=== PATIENT | female | born 1995 | race Caucasian/White ===

== ENCOUNTER 2023-06-28 10:12 | Emergency (ER) | payer BC, OTHER, SELFPAY ==
[2023-06-28 10:43] VITALS: BP 118/92; PULSE 87; TEMP 36.3; O2SAT 100
[2023-06-28 11:58] LABS: Basophils Percent Auto 0.3 % (0.2-1.2); Hematocrit 36.4 % (37.0-47.0); Hemoglobin 12.7 g/dL (12.0-15.0); Immature Granulocyte Absolute 0.06 K/mm3 (0.00-0.031); Immature Granulocyte Percent A 0.5 % (0-0.5); Lymphocytes Absolute Auto 2.38 K/mm3 (0.9-3.2); Lymphocytes Percent Auto 18.3 % (18.3-44.2); Mean Corpuscular HGB Conc 34.9 g/dl (32-36); Mean Corpuscular Hemoglobin 31.4 pg (26-34); Mean Corpuscular Volume 90.1 fl (80-100); Mean Platelet Volume 9.1 fl (7.4-10.4); Monocytes Absolute Auto 0.6 K/mm3 (0.1-0.6); Monocytes Percent Auto 4.9 % (2.6-8.5); Neutrophils Absolute Auto 9.9 K/mm3 (1.3-6.7); Platelet Count Result 310 k/mm3 (150-375); Red Blood Count 4.04 M/mm3 (4.2-5.4); Red Cell Distribution Width 11.6 % (11.5-14.5)
[2023-06-28 12:07] LABS: Alanine Aminotransferase 18 U/L (6-35); Alkaline Phosphatase 41 U/L (38-126); Anion Gap 4 mmol/L (8-16); Aspartate Amino Transferase 19 U/L (14-36); Bilirubin,Total 0.9 mg/dL (0.2-1.3); Blood Urea Nitrogen 8 mg/dL (7-17); Calcium 9.5 mg/dL (8.4-10.2); Carbon Dioxide 26 mmol/L (22-30); Chloride 102 mmol/L (98-107); Estimated CRCL calculation 110 ml/min; Estimated Glomerular Filt Rate > 60; Glucose 82 mg/dL (65-110); Lipase 51 U/L (23-300); Magnesium 1.9 mg/dL (1.6-2.3); Potassium 3.7 mmol/L (3.4-5.0); Sodium 132 mmol/L (137-145)
[2023-06-28 12:08] LABS: Appearance Urine Turbid (Clear); Bacteria Urine 3+ /hpf; Bilirubin Urine Negative (Negative); Blood Urine Negative (Negative); Color Urine Dark Yellow (Yellow); Glucose Urine UA Negative (Negative); Ketones Urine 3+ mg/dL (Negative); Leukocyte Esterase Ur 1+ LEU/UL (Negative); Mucus Urine Present /lpf; Nitrate Urine Negative (Negative); Non Pathogenic Casts 0-2; Protein Urine Trace mg/dL (Negative); Specific Grav Ur 1.027 (1.001-1.035); Squamous Epithelial Cell Urine Few /hpf (Few); pH Urine 6.5 (5.0-9.0)
[2023-06-28 12:09] LABS: Add Urine Microscopic? YES; Amorphous Sediment Urine Few
--- NOTE | 2023-06-28 12:13 | ED.NAVMDI ---
HPI - Nausea/Vomiting/Diarrhea General Chief complaint: Nausea/Vomiting/Diarrhea Stated complaint: 10WKS PREG. SENT IN FOR HYDRATION Time Seen by Provider: 06/28/23 11:31 Source: patient Mode of arrival: ambulatory Limitations: no limitations History of Present Illness HPI Narrative: Patient is a 27-year-old female who presents ED with report of nausea and vomiting. Patient is and currently approximately 10 weeks gestation. She has had confirmed IUP. She reports having persistent nausea and vomiting throughout does far and states she has been unable to keep down any food or drink over the last [address] Mcfarland with OBGYN and was referred to the ED for further evaluation. reports intermittent abdominal cramping after vomiting, denies consistent pain. Denies diarrhea, constipation, vomiting, dysuria, hematuria. Denies vaginal bleeding. She does admit to having similar issues with vomiting during previous . She was prescribed Zofran and Reglan by a OBGYN, but denies improvement. Reports akathisia reaction to Reglan. Related Data Home Medications Medication Instructions Recorded Confirmed bupropion HCl 300 mg 24 hr tablet, mg PO 02/26/19 extended release fluoxetine 20 mg capsule mg 02/26/19 Allergies Allergy/AdvReac Type Severity Reaction Status Date / Time Penicillins Allergy Unknown Rash Verified 03/06/18 18:38 metoclopramide [From Reglan] AdvReac Difficulty Verified 06/28/23 12:08 Breathing Review of Systems Review of Systems: CONSTITUTIONAL: Denies fever, chills, or sweats. GASTROINTESTINAL: see HPI. GENITOURINARY: Denies vaginal bleeding.Denies dysuria or hematuria. All systems reviewed & are unremarkable except as noted in HPI and below PMFSH Past Medical History Medical History Anxiety Family History Family History Other Family history of arthritis Family history of mental disorder Hypertension Social History Social History Alcohol intake: never Exam Narrative: GENERAL: Well appearing, well-nourished, non-toxic, in no acute distress. HEAD: Normocephalic, atraumatic. RESPIRATORY: Airway patent, respirations nonlabored. Clear to auscultation bilaterally, no rales, rhonchi, wheezing. CARDIOVASCULAR: Regular rate and rhythm without murmurs, rubs, or gallops. ABDOMINAL: Soft, No tenderness throughout abdomen, nondistended. Normoactive BS. MUSCULOSKELETAL: Moves all extremities. No gross deformities. SKIN: Warm, dry, normal color. NEURO: A&O X3. Speech clear. Cranial nerves II-XII grossly intact. Steady gait. No ataxic movements. PSYCHIATRIC: Appropriate mood and affect. Normal interaction. Course Vital Signs Vital signs: Vital Signs Temperature 97.4 F L 06/28/23 10:43 Pulse Rate 87 06/28/23 10:43 Blood Pressure 118/92 H 06/28/23 10:43 Pulse Oximetry 100 06/28/23 10:43 Temperature 98 F 06/28/23 16:43 Pulse Rate 80 06/28/23 16:43 Respiratory Rate 18 06/28/23 16:43 Blood Pressure 100/60 06/28/23 16:43 Pulse Oximetry 100 06/28/23 16:43 MDM - Nausea/Vomiting/Diarrhea MDM Narrative Medical decision making narrative: Patient presented to ED with persistent nausea & vomiting, unable to keep down food or drink, currently 10 weeks gestation, confirmed IUP, denying abdominal pain or vaginal bleeding. VSS upon arrival. Fluids and nausea medicine ordered. Patient has had adverse reaction to Reglan. Laboratory studies with leukocytosis of 13, stable H&H, stable electrolytes and kidney function. Urinalysis with 3+ ketones, 11-20 WBC, 3+ urine bacteria. Sent for culture. Will treat given status. Given dose of rocephin in the ED. Will d/c on keflex. On re-evaluation, patient feeling better, nausea improved. A
[2023-06-28] MEDS: diphenhydrAMINE HCl INJ 50 MG/ML VIAL 25 MG IV PUSH (12:24)
[2023-06-28] MEDS: SODIUM CHLORIDE 0.9% IV 1,000 ML 999 ML IV CONT ×2 (12:24)
[2023-06-28] MEDS: ONDANSETRON INJ 4 MG/2 ML VIAL IV PUSH ×2 (12:25→14:43)
[2023-06-28] MEDS: FAMOTIDINE 20 MG/2 ML VIAL IV PUSH (12:25)
[2023-06-28 14:12] VITALS: BP 92/42; PULSE 87; RESP 18; TEMP 36.6; O2SAT 100
[2023-06-28 14:16] VITALS: BP 104/51
[2023-06-28 16:43] VITALS: BP 100/60; PULSE 80; RESP 18; TEMP 36.6; O2SAT 100
== END 2023-06-28 16:44 | disposition home or self-care (01) ==
PROVIDERS: Emergency Medicine; Emergency Provider Physician Assistant; PCP Family Medicine
DX: O21.9 Vomiting of pregnancy, unspecified (principal); O26.891 Other specified pregnancy related conditions, first trimester; R82.71 Bacteriuria; O99.341 Other mental disorders complicating pregnancy, first trimester; F41.9 Anxiety disorder, unspecified; Z3A.10 10 weeks gestation of pregnancy
CPT/HCPCS: 36415; 80053; 81025; 83690; 83735; 85025; 87086; 96365; 96375; 96376; 99284; J0696; J1200; J2405; J7030

== ENCOUNTER 2023-07-04 10:57 | Emergency (ER) | payer BC, OTHER, SELFPAY ==
[2023-07-04 11:02] VITALS: BP 101/62; PULSE 125; RESP 18; TEMP 36.4; O2SAT 100
[2023-07-04 11:22] LABS: Basophils Percent Auto 0.4 % (0.2-1.2); Eosinophils Percent Auto 0.1 % (0-4.4); Hematocrit 37.8 % (37.0-47.0); Hemoglobin 12.9 g/dL (12.0-15.0); Immature Granulocyte Absolute 0.06 K/mm3 (0.00-0.031); Immature Granulocyte Percent A 0.5 % (0-0.5); Lymphocytes Absolute Auto 2.25 K/mm3 (0.9-3.2); Lymphocytes Percent Auto 20.1 % (18.3-44.2); Mean Corpuscular HGB Conc 34.1 g/dl (32-36); Mean Corpuscular Hemoglobin 31.3 pg (26-34); Mean Corpuscular Volume 91.7 fl (80-100); Mean Platelet Volume 9.5 fl (7.4-10.4); Monocytes Absolute Auto 0.7 K/mm3 (0.1-0.6); Monocytes Percent Auto 6.3 % (2.6-8.5); Neutrophils Absolute Auto 8.1 K/mm3 (1.3-6.7); Neutrophils Percent Auto 72.6 % (45.5-73.1); Platelet Count Result 318 k/mm3 (150-375); Red Blood Count 4.12 M/mm3 (4.2-5.4); Red Cell Distribution Width 11.7 % (11.5-14.5); White Blood Count 11.2 K/mm3 (4.5-10.0)
[2023-07-04 11:33] LABS: Alanine Aminotransferase 16 U/L (6-35); Albumin Level 4.1 g/dL (3.5-5.1); Alkaline Phosphatase 41 U/L (38-126); Anion Gap 7 mmol/L (4-12); Aspartate Amino Transferase 14 U/L (14-36); Bilirubin,Total 1.2 mg/dL (0.2-1.3); Blood Urea Nitrogen 6 mg/dL (7-17); Calcium 9.5 mg/dL (8.4-10.2); Carbon Dioxide 25 mmol/L (22-30); Chloride 102 mmol/L (98-107); Estimated CRCL calculation 110 ml/min; Estimated Glomerular Filt Rate > 60; Glucose 85 mg/dL (65-110); Lipase 28 U/L (23-300); Potassium 3.4 mmol/L (3.4-5.0); Sodium 134 mmol/L (137-145)
[2023-07-04 11:45] VITALS: BP 101/59; BP 102/60; BP 109/58; PULSE 67; PULSE 79; PULSE 92
--- NOTE | 2023-07-04 11:48 | ED.NAVMDI ---
HPI - Nausea/Vomiting/Diarrhea General Chief complaint: Nausea/Vomiting/Diarrhea Stated complaint: HG, sent by OBGYN Time Seen by Provider: 07/04/23 11:36 History of Present Illness HPI Narrative: Pt is 10 weeks and on zofran pump for hyperemesis and still vomiting and unable to keep anything down. Pt denies diarrhea or abdominal pain. Has some cramping only when she gets sick. Pt denies vaginal bleeding or discharge. Pt sees Dr Mcfarland for OB. Related Data Home Medications Medication Instructions Recorded Confirmed bupropion HCl 300 mg 24 hr tablet, mg PO 02/26/19 extended release fluoxetine 20 mg capsule mg 02/26/19 Allergies Allergy/AdvReac Type Severity Reaction Status Date / Time Penicillins Allergy Unknown Rash Verified 07/04/23 10:58 metoclopramide [From Reglan] AdvReac Difficulty Verified 07/04/23 10:58 Breathing Review of Systems Review of Systems: All systems reviewed & are unremarkable except as noted in HPI and below PMFSH Past Medical History Medical History Anxiety Family History Family History Other Family history of arthritis Family history of mental disorder Hypertension Social History Social History Alcohol intake: never Exam Const: General: healthy appearing and no acute distress Nutritional Appearance: well nourished Orientation/consciousness: patient oriented x3 Limitations: no limitations HENMT: Mouth: Yes dry mucous membranes Resp: Effort & Inspection: normal respiratory effort Auscultation: clear to auscultation bilaterally Cardio: Rate: regular rate Rhythm: regular rhythm GI: GI Palp: Yes Soft to palpation and No Tenderness to palpation present (GI) Auscultation: normal bowel sounds Skin: General skin exam: normal color Neuro: General: patient oriented x3, moves all extremities, no meningeal signs and no focal motor deficits Speech: normal speech Extrem: General: normal to inspection and no clubbing, cyanosis or edema Psych: Mental Status: mental status grossly normal Affect: normal affect Attitude: cooperative Course Vital Signs Vital signs: Vital Signs Temperature 97.6 F 07/04/23 11:02 Pulse Rate 125 H 07/04/23 11:02 Respiratory Rate 18 07/04/23 11:02 Blood Pressure 101/62 07/04/23 11:02 Pulse Oximetry 100 07/04/23 11:02 Oxygen Delivery Room Air 07/04/23 11:02 Temperature 97.6 F 07/04/23 11:02 Pulse Rate 60 07/04/23 14:08 Respiratory Rate 14 07/04/23 14:08 Blood Pressure 100/66 07/04/23 14:08 Pulse Oximetry 100 07/04/23 14:08 Oxygen Delivery Room Air 07/04/23 11:02 MDM - Nausea/Vomiting/Diarrhea MDM Narrative Medical decision making narrative: Pt presents with vomiting and she is 10 weeks . Pt on zofran pump but still vomiting. Will give d5lr and compazine. Pt feels better. discussed with Dr Radha fine to go home. Lab Data 07/04/23 11:15 07/04/23 11:15 Labs: Lab Results 07/04/23 07/04/23 Range/Units 11:15 11:20 WBC 11.2 H (4.5-10.0) K/mm3 RBC 4.12 L (4.2-5.4) M/mm3 Hgb 12.9 (12.0-15.0) g/dL Hct 37.8 (37.0-47.0) % MCV 91.7 (80-100) fl MCH 31.3 (26-34) pg MCHC 34.1 (32-36) g/dl RDW 11.7 (11.5-14.5) % Plt Count 318 (150-375) k/mm3 MPV 9.5 (7.4-10.4) fl Immature Gran % (Auto) 0.5 (0-0.5) % Neut % (Auto) 72.6 (45.5-73.1) % Lymph % (Auto) 20.1 (18.3-44.2) % [place] % (Auto) 6.3 (2.6-8.5) % Eos % (Auto) 0.1 (0-4.4) % Baso % (Auto) 0.4 (0.2-1.2) % Lymph # (Auto) 2.25 (0.9-3.2) K/mm3 [place] # (Auto) 0.7 H (0.1-0.6) K/mm3 Eos # (Auto) 0.0 (0-0.3) K/mm3 Baso # (Auto) 0.0 (0.0-0.1) K/mm3 Abs Immat Gran (auto) 0.06 H (0.00-0.031) K/mm3 Absolute Neuts (auto) 8.1 H (1.3-6.7)
[2023-07-04 11:57] LABS: Bacteria Urine 1+ /hpf; Need Manual Microscopic Reviewed; Non Pathogenic Casts 0-2; Squamous Epithelial Cell Urine Occasional /hpf (Few); WBC Urine 0-5 /hpf (0-3)
[2023-07-04] MEDS: DEXTROSE 5%/LACTATED RINGERS 1,000 ML 999 ML IV CONT (11:57)
[2023-07-04 11:58] VITALS: BP 102/60; PULSE 62; RESP 17; O2SAT 100
[2023-07-04] MEDS: PROCHLORPERAZINE EDISYLATE 10 MG/2 ML VIAL IV PUSH (11:58)
[2023-07-04 12:01] LABS: Amorphous Sediment Urine Few
[2023-07-04 12:02] LABS: Color Urine Yellow (Yellow); Glucose Urine UA Negative (Negative); Protein Urine 1+ mg/dL (Negative)
[2023-07-04 12:03] LABS: Add Urine Microscopic? YES; Bilirubin Urine 1+ (Negative); Nitrate Urine Negative (Negative); Urobilinogen Urine 0.2 mg/dL (<2.0)
[2023-07-04 12:04] LABS: Ketones Urine 2+ mg/dL (Negative); Leukocyte Esterase Ur 1+ LEU/UL (Negative)
[2023-07-04 12:05] LABS: Appearance Urine Cloudy (Clear); Blood Urine Trace-intact (Negative)
[2023-07-04 13:10] VITALS: BP 99/66; PULSE 61; RESP 18; O2SAT 100
[2023-07-04 14:08] VITALS: BP 100/66; PULSE 60; RESP 14; O2SAT 100
== END 2023-07-04 14:09 | disposition home or self-care (01) ==
PROVIDERS: Emergency Provider Emergency Medicine; PCP Family Medicine
DX: O21.0 Mild hyperemesis gravidarum (principal); Z3A.10 10 weeks gestation of pregnancy; O99.341 Other mental disorders complicating pregnancy, first trimester; F41.9 Anxiety disorder, unspecified
CPT/HCPCS: 36415; 80053; 81001; 83690; 85025; 96361; 96374; 99284; J0780; J7121

== ENCOUNTER 2023-07-13 21:23 | Emergency (ER) | payer BC, OTHER, SELFPAY ==
[2023-07-13 21:25] VITALS: BP 103/49; PULSE 78; RESP 15; TEMP 36.4; O2SAT 100
[2023-07-13 22:15] VITALS: RESP 14; O2SAT 98
[2023-07-13] MEDS: SODIUM CHLORIDE 0.9% IV 1,000 ML 999 ML IV CONT (22:31)
[2023-07-13 22:37] LABS: Basophils Percent Auto 0.3 % (0.2-1.2); Eosinophils Percent Auto 0.1 % (0-4.4); Hematocrit 32.8 % (37.0-47.0); Hemoglobin 11.6 g/dL (12.0-15.0); Immature Granulocyte Absolute 0.04 K/mm3 (0.00-0.031); Immature Granulocyte Percent A 0.3 % (0-0.5); Lymphocytes Absolute Auto 1.89 K/mm3 (0.9-3.2); Lymphocytes Percent Auto 15.2 % (18.3-44.2); Mean Corpuscular HGB Conc 35.4 g/dl (32-36); Mean Corpuscular Hemoglobin 31.7 pg (26-34); Mean Corpuscular Volume 89.6 fl (80-100); Mean Platelet Volume 9.1 fl (7.4-10.4); Monocytes Absolute Auto 0.5 K/mm3 (0.1-0.6); Monocytes Percent Auto 4.2 % (2.6-8.5); Neutrophils Absolute Auto 9.9 K/mm3 (1.3-6.7); Neutrophils Percent Auto 79.9 % (45.5-73.1); Platelet Count Result 268 k/mm3 (150-375); Red Blood Count 3.66 M/mm3 (4.2-5.4); Red Cell Distribution Width 11.6 % (11.5-14.5); White Blood Count 12.4 K/mm3 (4.5-10.0)
[2023-07-13 22:46] LABS: Alanine Aminotransferase 13 U/L (6-35); Albumin Level 3.5 g/dL (3.5-5.1); Alkaline Phosphatase 42 U/L (38-126); Anion Gap 7 mmol/L (4-12); Aspartate Amino Transferase 15 U/L (14-36); Bilirubin,Total 0.6 mg/dL (0.2-1.3); Blood Urea Nitrogen 6 mg/dL (7-17); Calcium 9.2 mg/dL (8.4-10.2); Carbon Dioxide 24 mmol/L (22-30); Chloride 103 mmol/L (98-107); Estimated CRCL calculation 110 ml/min; Estimated Glomerular Filt Rate > 60; Glucose 83 mg/dL (65-110); Potassium 4.2 mmol/L (3.4-5.0); Sodium 134 mmol/L (137-145)
[2023-07-13] MEDS: ONDANSETRON INJ 4 MG/2 ML VIAL IV PUSH (22:52)
[2023-07-13 23:00] VITALS: BP 116/62; PULSE 89; RESP 17; O2SAT 100
--- NOTE | 2023-07-13 23:50 | ED.GENADULT ---
HPI - General Adult General Chief complaint: Unspecified Stated complaint: 12 wks preg, vomiting Time Seen by Provider: 07/13/23 22:15 History of Present Illness HPI narrative: Patient is a 27-year-old female who presents to the emergency department this evening complaining of nausea, vomiting secondary to first-trimester . Patient will be 12 weeks [address] and sees Dr. Mcfarland as her OBGYN. Patient currently has a Zofran pump that administers 1 mg of IV Zofran every hour, however, patient states that although it is helping it is not completely alleviating her nausea and vomiting. Patient states that she does have an allergy to Reglan. She is currently denying any vaginal bleeding or spotting, any abdominal pain or cramping, any fevers or chills, and denies any urinary symptoms including dysuria or hematuria. There are no other modifying, alleviating, or precipitating factors at this time. Related Data Home Medications Medication Instructions Recorded Confirmed bupropion HCl 300 mg 24 hr tablet, mg PO 02/26/19 extended release fluoxetine 20 mg capsule mg 02/26/19 Allergies Allergy/AdvReac Type Severity Reaction Status Date / Time Penicillins Allergy Unknown Rash Verified 07/13/23 21:24 metoclopramide [From Reglan] AdvReac Difficulty Verified 07/13/23 21:24 Breathing Review of Systems Review of Systems: All systems are reviewed and are negative unless stated otherwise in the HPI. [facility] Past Medical History Medical History Anxiety Family History Family History Other Family history of arthritis Family history of mental disorder Hypertension Social History Social History Alcohol intake: never Exam Narrative: General: Alert, awake, afebrile, in no acute distress. HEENT: PERRL, no rhinorrhea, no post nasal drip, oropharynx clear. Neck: Trachea midline, no JVD, no lymphadenopathy. Cardiovascular: Regular rate and rhythm, no murmurs, rubs or gallops, no peripheral edema. Respiratory: Clear to auscultation bilaterally, no tachypnea, no wheezing, no rhonchi, no rubs, no respiratory distress. Abdomen: Soft, nontender, nondistended, no rebound, no guarding, no peritoneal signs. Musculoskeletal: No joint swelling or deformity, normal muscle tone. Skin: No rashes or petechia, no signs of infection. Psychiatric: Alert and oriented, normal behavior and judgment for situation. Neurological: Alert and oriented to person, place, and time. Follows all commands. No focal deficits, speech is clear and fluent. Course Vital Signs Vital signs: Vital Signs Temperature 97.5 F L 07/13/23 21:25 Pulse Rate 78 07/13/23 21:25 Respiratory Rate 15 07/13/23 21:25 Blood Pressure 103/49 L 07/13/23 21:25 Pulse Oximetry 100 07/13/23 21:25 Oxygen Delivery Room Air 07/13/23 21:25 Temperature 97.5 F L 07/13/23 21: Pulse Rate 89 07/13/23 23:00 Respiratory Rate 17 07/13/23 23:00 Blood Pressure 116/62 07/13/23 23:00 Pulse Oximetry 100 07/13/23 23:00 Oxygen Delivery Room Air 07/13/23 21:25 Medical Decision Making MDM Narrative Medical decision making narrative: The patient was evaluated by myself in the emergency department. History is obtained from patient who is an independent historian and physical exam was performed. External medical records were reviewed at this time. IV was established and pertinent tests were ordered. Patient was administered a 1 L IV fluid bolus with normal saline and 4 mg of IV Zofran. Patient continues to feel nauseous after the Zofran and at this time 50 mg of IV Benadryl, 12.5 mg of IV Phenergan and 50 mg of vitamin B6 were administered. Laboratory results obtained revealing a mild leukocytosis of 12.4, otherwise unremarkable. Urinalysis revealed 4+ ketones and 1+ ba
[2023-07-13] MEDS: diphenhydrAMINE HCl INJ 50 MG/ML VIAL IV PUSH (23:53)
[2023-07-13] MEDS: PROMETHAZINE HCL 25 MG/ML AMPUL 12.5 MG IV PUSH (23:54)
[2023-07-14 00:16] LABS: Appearance Urine Turbid (Clear); Bacteria Urine 1+ /hpf; Bilirubin Urine Negative (Negative); Blood Urine Negative (Negative); Color Urine Yellow (Yellow); Glucose Urine UA Negative (Negative); Ketones Urine 4+ mg/dL (Negative); Leukocyte Esterase Ur Trace LEU/UL (Negative); Nitrate Urine Negative (Negative); Non Pathogenic Casts 0-2; Protein Urine Negative (Negative); Specific Grav Ur 1.019 (1.001-1.035); Squamous Epithelial Cell Urine Occasional /hpf (Few); WBC Urine 0-5 /hpf (0-3); pH Urine 7.5 (5.0-9.0)
[2023-07-14 00:31] LABS: Add Urine Microscopic? YES
[2023-07-14] MEDS: PYRIDOXINE HCL 100 MG/ML VIAL (*SPC) 50 MG IV PUSH (00:52)
[2023-07-14 02:00] VITALS: BP 133/69; PULSE 76; RESP 16; O2SAT 98
[2023-07-14 02:15] VITALS: BP 122/65; PULSE 70; RESP 16; O2SAT 98
[2023-07-14 02:34] VITALS: BP 132/68; PULSE 71; RESP 16; O2SAT 98
[2023-07-14 02:35] VITALS: BP 134/64; PULSE 73; RESP 16; O2SAT 99
== END 2023-07-14 02:36 | disposition home or self-care (01) ==
PROVIDERS: Emergency Provider Emergency Medicine; PCP Family Medicine
DX: O21.0 Mild hyperemesis gravidarum (principal); Z3A.12 12 weeks gestation of pregnancy; O28.8 Other abnormal findings on antenatal screening of mother; E86.0 Dehydration
CPT/HCPCS: 36415; 80053; 81001; 85025; 96361; 96374; 96375; 99284; J1200; J2405; J2550; J3415; J7030

== ENCOUNTER 2023-12-28 09:12 | Outpatient (CLI) | payer BC, SELFPAY ==
[2023-12-28 09:34] VITALS: BP 114/60; PULSE 86
[2023-12-28 10:15] VITALS: BP 114/60; PULSE 92
[2023-12-28 10:23] LABS: OBXCEM ROM Plus Negative (Negative)
== END 2023-12-28 10:15 | disposition home or self-care (01) ==
LOC: ANHOBOP 09:17 → ANHOBPP 09:20
PROVIDERS: PCP Family Medicine; Visit Provider Obstetrics & Gynecology
DX: O42.90 Premature rupture of membranes, unspecified as to length of time between rupture and onset of labor, unspecified weeks of gestation (principal); Z3A.00 Weeks of gestation of pregnancy not specified
CPT/HCPCS: 59025; 84112; 99199

== ENCOUNTER 2024-01-07 11:59 | Inpatient (IN) | payer BC, SELFPAY ==
[2024-01-07] VITALS (57 sets, daily range): BP systolic 80–136; BP diastolic 24–86; PULSE 55–110; RESP 16; TEMP 36.7–37.4; O2SAT 79–100; BMI 27.7
--- NOTE | 2024-01-07 11:59 | LDADM ---
This patient, Lyudmila Smith, was admitted to Labor/Delivery/Recovery 105 on 01/07/24 at 11:59. Plans for labor, pain management and were discussed with patient. Patient/family oriented to hospital policies and general routines including ID bracelet, bed and alarms, visiting hours, pain management, procedures, bathroom and other care routines, personal items, smoking policy, room service/diet and guest tray routines, infant security routines, and visiting hours. Patient/Family are encouraged to report perceived risks to care and to ask questions if they do not understand what they are told or what they should do. See OBIX for further documentation.
[2024-01-07 12:46] LABS: Basophils Percent Auto 0.3 % (0.2-1.2); Eosinophils Percent Auto 0.2 % (0-4.4); Hematocrit 37.3 % (37.0-47.0); Hemoglobin 13.1 g/dL (12.0-15.0); Immature Granulocyte Absolute 0.13 K/mm3 (0.00-0.031); Lymphocytes Absolute Auto 2.24 K/mm3 (0.9-3.2); Lymphocytes Percent Auto 17.7 % (18.3-44.2); Mean Corpuscular HGB Conc 35.1 g/dl (32-36); Mean Corpuscular Hemoglobin 32.3 pg (26-34); Mean Corpuscular Volume 91.9 fl (80-100); Mean Platelet Volume 10.6 fl (7.4-10.4); Monocytes Absolute Auto 0.6 K/mm3 (0.1-0.6); Monocytes Percent Auto 4.9 % (2.6-8.5); Neutrophils Absolute Auto 9.6 K/mm3 (1.3-6.7); Neutrophils Percent Auto 75.9 % (45.5-73.1); Platelet Count Result 248 k/mm3 (150-375); Red Blood Count 4.06 M/mm3 (4.2-5.4); Red Cell Distribution Width 12.4 % (11.5-14.5); White Blood Count 12.6 K/mm3 (4.5-10.0)
[2024-01-07 13:25] LABS: Rapid Plasma Reagin Non-Reactive (NonReactive)
[2024-01-07 13:37] LABS: HIV 1/2 Ab P24 Ag Result Negative (Negative)
[2024-01-07] MEDS: LACTATED RINGERS 1,000 ML 125 ML IV CONT ×2 (13:43→15:28)
[2024-01-07] MEDS: OXYTOCIN 30 UNITS/NS 500 ML 30 UNITS/500 ML BAG IV CONT (13:43)
--- NOTE | 2024-01-07 14:04 | WPDOBADMIT ---
Obstetrics - Admit Note Admission Note: record reviewed. No pertinent additions to the history and/or any subsequent changes in the physical findings that are not consistent with the expected course of the were found. Patient admitted for MIL for 09/16 BPP. NST nonreactive in office. Pitocin per protocol, AROM performed with clear fluid. SVE /-2 Additions to the history and/or subsequent changes in the physical findings follow. None.
--- NOTE | 2024-01-07 15:18 | WPDANESEPPF ---
Anes - Initial Pre Proc Eval Procedure: labor epidural Date/Time: 01/07/24 15:18 Surgeon: Lee Mcfarland MD Pre Op Diagnosis: labor pain Pre Op Diagnosis: Induction of Labor Patient Data Age: 28 Gender: F Height: 1.68 m Weight: 78 kg Last Vital Signs Temp 37.4 C 01/07/24 13:40 Pulse 74 01/07/24 15:18 BP 106/24 L 01/07/24 15:18 Pulse Ox 99 01/07/24 15:17 Allergies Allergy/AdvReac Type Severity Reaction Status Date / Time Penicillins Allergy Unknown Rash Verified 01/01/24 12:18 metoclopramide [From Reglan] AdvReac Difficulty Verified 01/01/24 12:18 Breathing Home Medications Medication Instructions Recorded Confirmed Type aspirin 81 mg tablet 81 mg PO DAILY 01/01/24 01/01/24 History vits no.126-ferrous fum 1 tablet PO DAILY 01/01/24 01/01/24 History 28 mg iron-folic acid 800 mcg tablet (Classic ) Laboratory Tests 01/07/24 12:37 WBC 12.6 H K/mm3 (4.5-10.0) RBC 4.06 L M/mm3 (4.2-5.4) Hgb 13.1 g/dL (12.0-15.0) Hct 37.3 % (37.0-47.0) MCV 91.9 fl (80-100) MCH 32.3 pg (26-34) MCHC 35.1 g/dl (32-36) RDW 12.4 % (11.5-14.5) Plt Count 248 k/mm3 (150-375) MPV 10.6 H fl (7.4-10.4) Immature Gran % (Auto) 1.0 H % (0-0.5) Neut % (Auto) 75.9 H % (45.5-73.1) Lymph % (Auto) 17.7 L % (18.3-44.2) [place] % (Auto) 4.9 % (2.6-8.5) Eos % (Auto) 0.2 % (0-4.4) Baso % (Auto) 0.3 % (0.2-1.2) Lymph # (Auto) 2.24 K/mm3 (0.9-3.2) [place] # (Auto) 0.6 K/mm3 (0.1-0.6) Eos # (Auto) 0.0 K/mm3 (0-0.3) Baso # (Auto) 0.0 K/mm3 (0.0-0.1) Abs Immat Gran (auto) 0.13 H K/mm3 (0.00-0.031) Absolute Neuts (auto) 9.6 H K/mm3 (1.3-6.7) Absolute Nucleated RBC 0.000 K/mm3 (0.0-0.012) Nucleated RBC % 0.0 % (0.0-0.2) RPR Non-reactive (NonReactive) HIV 1&2 Ab/P24 Ag 4thGn Negative (Negative) Blood Type O Positive Antibody Screen Negative Patient hx anesthesia problems: none Family hx anesthesia problems: none Results Review: All pre-operative results and documents have been reviewed as part of the pre-operative evaluation. PMFSH Past Medical History Medical History Anxiety Family History Family History Other Family history of arthritis Family history of mental disorder Hypertension Social History Social History Smoking status: Never smoker Alcohol intake: never Substance use: never Do You Feel Safe in your Home?: Yes Lack of Transportation: No Lack of Food: Never True Current Housing: I Have Housing Concerned About Future Housing: No Difficulty Paying Gas/Electric Bills: No Difficulty Paying for Meds: No Currently Unemployed: No Education: Trade/Vocational Certificate Difficulty w/ Childcare or Family Care: No Spiritual care concerns: No Anes - Eval Final PreProcedure Day of Procedure 01/07/24 15:18 Patient weight: overweight ASA classification: II Anesthetic plan: proceed Anesthesia type and monitoring: regional epidural and standard monitoring Results Review: All pre-operative results and documents have been reviewed as part of the pre-operative evaluation. Informed Consent: The patient's anesthetic plan and its attendant risks and benefits were discussed with the patient/family/POA. Questions were solicited and answers provided to the satisfaction of the patient/family/POA.
[2024-01-07] MEDS: OXYTOCIN 30 UNITS/NS 500 ML 30 UNITS/500 ML BAG 125 UNITS IV CONT (16:21)
--- NOTE | 2024-01-07 17:06 | PM.OBPRVD ---
OB - Vaginal Delivery Note Procedure Delivery date: 01/07/24 Events: Other (nonreactive testing (09/16 BPP)) Induction method: AROM and Per Pitocin Protocol Delivery monitor: External FHT and External Uterine Route of delivery: Episiotomy description: None Laceration Description: Periurethral Specimen: No Quantitative Blood Loss (ml): 50 Anesthesia type: Epidural Disposition: Floor Complications: No immediate complications Narrative: See H&P and notes for details on patient's admission and labor. She progressed to complete cervical dilation and at the appropriate time began pushing. With adequate expulsive efforts by the mother, the baby's head was delivered without difficulty. Nuchal cord was not present. The baby's right shoulder was anterior and delivered under the pubic symphysis without difficulty. The posterior shoulder and the rest of the baby delivered without difficulty. The umbilical cord was doubly clamped and cut after 60 seconds of delayed cord clamping. Care of the infant was then assumed by the nursing staff. Baby Date of : 01/07/24 Time of : 15:57 Gestational Age by Date: 37 Infant gender: Female presentation: vertex position: Left Occiput Anterior Placenta delivery description: Expressed Cord Vessel Description: 3 Vessels and Delayed Cord Clamping
[2024-01-07] MEDS: WITCH HAZEL 40 PADS 1 PAD TOPICAL (18:39)
[2024-01-07] MEDS: BENZOCAINE 20% AER SPR (*SP) 56 GM CAN 1 SPRAY TOPICAL (18:39)
--- NOTE | 2024-01-07 20:40 | OBPPTRN ---
01/07/2024 at 1845 Patient in wheelchair transferred to post room #286. The patient and her significant other oriented to unit, room, information board, rooming in, admission packet, security measures and verbalizes understanding.
[2024-01-08 05:01] LABS: Hematocrit 36.9 % (37.0-47.0); Hemoglobin 12.8 g/dL (12.0-15.0)
[2024-01-08 07:15] VITALS: BP 102/69; PULSE 76; RESP 16; TEMP 36.4; O2SAT 100
--- NOTE | 2024-01-08 08:00 | PC.NURSE ---
Introductions were made, then consulted with patient to assess needs related to . Mother led the conversation with her?plans to feed?her infant and the?experience so far. She states that she would like to exclusively breastfeed . Mother has a 12 year old at home who she did breast feed as well. She denies questions at this time and states that feedings have been going wonderful and is waking to eat and latching well. Encouraged understanding of the benefits of skin to skin, stimulating with massage touch, changing positions to encourage wakefulness, how to watch for early feeding cues, responsive feeding, feeding on demand (aiming for 8-12 times in 24 hours, about every 2-3 hours), milk production, building/maintaining a milk supply, duration of feeding, signs of adequate intake/output and how to record on the feeding sheet. Mother works well with her and is independently feeding at this time. Reviewed comfort measures of healing with a warm, wet washcloth to rinse breast, then leave open to air-dry, good handwashing when or touching the breast/nipples to prevent infection. Mother voiced understanding of skin to skin, stimulating with massage touch, responsive feedings, hand expressed colostrum, talking to infant to encourage if it has been 2 -2.5 hours since the start of the last , to call if does not latch, or if there is discomfort with . Communication board updated with contact information. Mother voiced understanding of information and will call if there is a request for assistance. Reported to the Primary RN.
--- NOTE | 2024-01-08 08:41 | P.PNOB_ITS ---
OB - PN: Subj Subjective Date/time seen: 01/08/24 08:41 Interval history: PPD#1 Doing well, pain well controlled Voiding without issue Tolerating general diet OB - PN: Obj Data Labs 01/08/24 04:39 Labs: Laboratory Results - last 24 hr 01/07/24 01/08/24 12:37 04:39 WBC 12.6 H RBC 4.06 L Hgb 13.1 12.8 Hct 37.3 36.9 L MCV 91.9 MCH 32.3 MCHC 35.1 RDW 12.4 Plt Count 248 MPV 10.6 H Immature Gran % (Auto) 1.0 H Neut % (Auto) 75.9 H Lymph % (Auto) 17.7 L [place] % (Auto) 4.9 Eos % (Auto) 0.2 Baso % (Auto) 0.3 Lymph # (Auto) 2.24 [place] # (Auto) 0.6 Eos # (Auto) 0.0 Baso # (Auto) 0.0 Abs Immat Gran (auto) 0.13 H Absolute Neuts (auto) 9.6 H Absolute Nucleated RBC 0.000 Nucleated RBC % 0.0 RPR Non-reactive HIV 1&2 Ab/P24 Ag 4thGn Negative Blood Type O Positive Antibody Screen Negative OB - PN A/P Assessment and Plan (1) (spontaneous vaginal delivery): Code(s): O80 - Encounter for full-term uncomplicated delivery Status: Acute Plan day: 1 Plan: routine care and discharge home Time Spent With Patient Time: Total time spent is greater than 50% in coordination of care (as documented) at patient's floor/unit and/or counseling patient: Review of Systems Review of Systems: All systems reviewed & are unremarkable except as noted in HPI and below Exam Const: General: comfortable and no acute distress Orientation/consciousness: patient oriented x3 Resp: Effort & Inspection: normal respiratory effort
--- NOTE | 2024-01-08 08:44 | P.DS_ITS ---
DS: Admitting Diagnosis Discharge Date 01/08/24 Admitting Diagnosis 09/16 BPP, medical induction of labor DS: Discharge Diagnosis Discharge Diagnosis (1) (spontaneous vaginal delivery): Code(s): O80 - Encounter for full-term uncomplicated delivery Status: Acute OB - DS: Summary OB Procedures : None OB Procedures Intrapartum: Spontaneous Vag Delivery OB Procedures: : None Peripartum Data Laceration Description: Periurethral Episiotomy description: None Time Spent with Patient Time attestation: Total time spent providing and/or coordinating discharge services: DS: Data Data Completed and Pending Labs on day of discharge: Labs from last 24 hours 01/08/24 01/07/24 04:39 12:37 WBC 12.6 H RBC 4.06 L Hgb 12.8 13.1 Hct 36.9 L 37.3 MCV 91.9 MCH 32.3 MCHC 35.1 RDW 12.4 Plt Count 248 MPV 10.6 H Immature Gran % (Auto) 1.0 H Neut % (Auto) 75.9 H Lymph % (Auto) 17.7 L [place] % (Auto) 4.9 Eos % (Auto) 0.2 Baso % (Auto) 0.3 Lymph # (Auto) 2.24 [place] # (Auto) 0.6 Eos # (Auto) 0.0 Baso # (Auto) 0.0 Abs Immat Gran (auto) 0.13 H Absolute Neuts (auto) 9.6 H Absolute Nucleated RBC 0.000 Nucleated RBC % 0.0 RPR Non-reactive HIV 1&2 Ab/P24 Ag 4thGn Negative Blood Type O Positive Antibody Screen Negative Discharge Plan Discharge Attending physician on discharge: Lee Mcfarland Discharging Clinician: Lee Mcfarland Patient Disposition: Home, Self-Care Activity: may shower, as tolerated and pelvic rest Diet: as tolerated Patient Instructions: Antibiotic Form Stand Alone Forms: General Discharge Information Follow-up/Referrals: Lee Mcfarland MD [Physician] - 4 Weeks Discharge Medications: New docusate sodium 100 mg Capsule 100 mg PO BID PRN (Reason: Constipation) Qty: 60 0RF ibuprofen 600 mg Tablet 600 mg PO Q6H PRN (Reason: Cramping) Qty: 30 0RF Continued Classic 28 mg iron- 800 mcg Tablet 1 tablet PO DAILY Discontinued Adult Aspirin 81 mg Tablet 81 mg PO DAILY Date of admission: 01/07/24 11:59 Primary Care Provider: Sergio,Christi Arreola Admitting Provider: Lee Mcfarland Attending physician on admission: Lee Mcfarland Condition: Stable
[2024-01-08] MEDS: MULTIVIT/MIN/PREN/FOL AC/IRON TABLET 1 TAB PO (09:17)
[2024-01-08] MEDS: DOCUSATE SODIUM 100 MG CAPSULE PO (09:17)
[2024-01-08 12:00] VITALS: BP 108/68; PULSE 89; RESP 16; TEMP 36.2; O2SAT 99
--- NOTE | 2024-01-08 14:52 | WPDANLDPN2 ---
Anes-Prog Note L&D Date/Time: 01/08/24 14:52 Neuraxial method: epidural Epidural/Spinal procedure site: clean & non-tender Neuro status: Neuro function grossly intact. Cardiovascular status: normal Respiratory status: normal Airway patency: baseline Mental status: baseline Post-Op hydration status: normal Vital Signs: Last Vital Signs Temp 36.2 C L 01/08/24 12:00 Pulse 89 01/08/24 12:00 Resp 16 01/08/24 12:00 BP 108/68 01/08/24 12:00 Pulse Ox 99 01/08/24 12:00 O2 Del Method Room Air 01/07/24 18:55 Pain score (VAS): 0/10 I/O: Intake & Output 01/07/24 01/08/24 01/08/24 23:59 07:59 15:59 Intake Total 240 Output Total 145 Balance -145 240 Post-procedural complaints: none Patient feedback: Patient satisfied with anesthetic care. Patient states that her baby came quickly, but the epidural helped take the edge of the pain with contractions and delivery.
[2024-01-09 11:25] VITALS: BP 111/68; PULSE 88; RESP 18; TEMP 37.2; O2SAT 100
== END 2024-01-08 17:36 | disposition home or self-care (01) | DRG 807 ==
LOC: ANHLDR 12:16 → ANHOB2 18:51
PROVIDERS: Admitting Provider Obstetrics & Gynecology; PCP Family Medicine; Visit Provider Obstetrics & Gynecology
DX: O28.8 Other abnormal findings on antenatal screening of mother (principal); Z37.0 Single live birth; Z3A.37 37 weeks gestation of pregnancy
CPT/HCPCS: 36415; 85014; 85018; 85025; 86592; 86703; 86850; 86900; 86901; A9270; G0432; J2590; J2795; J7120